=== PATIENT | male | born 1985 | race Caucasian/White ===

== ENCOUNTER 2019-10-02 11:13 | Emergency (ER) | payer OTHER, MEDICARE, MEDICAID ==
[~2019-10-02] VITALS: Ht 175.3 cm; Wt 123.9 kg
[2019-10-02 11:26] VITALS: BP 144/92
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
== END 2019-10-02 12:46 | disposition home or self-care (01) ==
LOC: ED 12:40
DX: S60.221A Contusion of right hand, initial encounter (principal); V79.88XA Bus occupant (driver) (passenger) injured in other specified transport accidents, initial encounter; Y92.413 State road as the place of occurrence of the external cause; Y93.89 Activity, other specified; Y99.8 Other external cause status; E11.9 Type 2 diabetes mellitus without complications
CPT/HCPCS: 29125; 99283